=== PATIENT | male | born 1960 | race Caucasian/White ===

== ENCOUNTER → 2017-09-19 | Outpatient (CLI) | payer OTHER ==
[~2017-09-19] MED LIST: HYDROCODON-ACE1 EAC7 PO; LOTREL 10/21 CAPSULE PO; PRILOSEC40 MG PO
== END | disposition home or self-care (01) ==
LOC: CDC 12:00
DX: S62.616D Displaced fracture of proximal phalanx of right little finger, subsequent encounter for fracture with routine healing (principal); M79.644 Pain in right finger(s)
CPT/HCPCS: 93000

== ENCOUNTER 2018-03-14 20:11 | Emergency (ER) | payer OTHER ==
[~2018-03-14] VITALS: Ht 182.9 cm; Wt 114.0 kg
[2018-03-14] MEDS ORDERED: PERCOCET 5/31 TABLET PO (21:13)
[2018-03-14] MEDS ORDERED: FLAGYL500 MG PO (21:14)
[2018-03-14] MEDS ORDERED: BACTRIM,SEPT1 TABLET PO (21:14)
[2018-03-14 22:18] VITALS: BP 165/81
== END 2018-03-14 22:19 | disposition home or self-care (01) ==
LOC: EME 20:11
PROC: 3E0234Z Introduction of Serum, Toxoid and Vaccine into Muscle, Percutaneous Approach (ICD-10-PCS; principal; 2018-03-14)
PROC: 2W3CX1Z Immobilization of Right Lower Arm using Splint (ICD-10-PCS; principal; 2018-03-14)
DX: S51.851A Open bite of right forearm, initial encounter (principal); S62.336A Displaced fracture of neck of fifth metacarpal bone, right hand, initial encounter for closed fracture; W54.0XXA Bitten by dog, initial encounter; Z23 Encounter for immunization; Z20.3 Contact with and (suspected) exposure to rabies; Z88.0 Allergy status to penicillin
CPT/HCPCS: 73130; 99281; 99284